=== PATIENT | female | born 1985 | race Two or more races ===

== ENCOUNTER → 2016-09-09 | Outpatient (CLI) | payer OTHER ==
--- NOTE | ~2016-09-09 | US128 ---
[id number] [facility] [address] [place], [place] [address] [id number] O MR#: [id number] Acc #: [id number] NAME: JOSTIN CISNEROS : 1985 SEX: F STUDY DATE/TIME: 09/09/2016 16:00 UNIT: [facility] ROOM: STUDY DESCRIPTION: Thyroid Attending Physician: Stefano Silva M.D. Referring Physician: Stefano Silva M.D. Ordering Physician: Stefano Silva M.D. Primary Care Physician: Xuan Arango M.D. MEDICAL IMAGING REPORT This report is preliminary unless electronic signature is present EXAM Thyroid ultrasound, 09/09/2016 INDICATION Thyroid nodules. Restaging. COMPARISON Thyroid ultrasound 08/09/2015. FINDINGS The right lobe of the thyroid measures 4.4 cm x 2.4 cm x 2.4 cm. The left lobe measures 4.6 cm x 1.5 cm x 2.4 cm. Echogenicity and echotexture of the background thyroid parenchyma is heterogeneous. There is increased vascularity. There is a thyroid nodule in the inferior left thyroid measuring 1.6 cm x 1.1 cm x 1.2 cm, compared to 1.8 cm x 1.6 cm x 0.8 cm. IMPRESSION 1. Background parenchyma is coarsened with increased vascularity, similar to the prior study. 2. A 1.6 cm nodule in the inferior left thyroid is stable to slightly decreased in size from the prior exam. Dictated by... Tj Schroeder M.D. THIS IS AN ELECTRONICALLY VERIFIED REPORT Tj Schroeder M.D. at 09/10/2016 3:04 PM REYNA/fitz TD: 09/10/2016 00:24 JOB #: [id number] MEDICAL IMAGING REPORT Page 1 of 1 COPY
== END | disposition home or self-care (01) ==
LOC: CGUS 14:37
DX: E05.20 Thyrotoxicosis with toxic multinodular goiter without thyrotoxic crisis or storm (principal); E04.1 Nontoxic single thyroid nodule
CPT/HCPCS: 76536